=== PATIENT | female | born 1945 | race Caucasian/White ===

== ENCOUNTER 2016-11-27 23:00 | Emergency (ER) | payer MEDICARE, OTHER ==
[~2016-11-27] VITALS: Ht 157.5 cm; Wt 58.5 kg
[2016-11-27] MEDS ORDERED: LIDOCAINE 1%, 20ML ONE (23:37)
[2016-11-28] MEDS ORDERED: LIDOCAINE 1%-EPI 1:100K, 20ML SQ ONE
[2016-11-28] MEDS ORDERED: AMOXICILLIN/CLAV 875-125MG TABLET PO ONE (00:30)
[2016-11-28 00:33] VITALS: BP 133/79
== END 2016-11-28 00:39 ==
LOC: ED 23:58
DX: S61.452A Open bite of left hand, initial encounter (principal); Z87.891 Personal history of nicotine dependence; W54.0XXA Bitten by dog, initial encounter; Y93.89 Activity, other specified; Y92.009 Unspecified place in unspecified non-institutional (private) residence as the place of occurrence of the external cause; Y99.9 Unspecified external cause status
CPT/HCPCS: 99283

== ENCOUNTER → 2016-12-11 | Outpatient (CLI) | payer MEDICARE | END | disposition home or self-care (01) | LOC: CFH 08:51 | PROVIDERS: ATTEND Internal Medicine Cardiovascular Disease | DX: I08.3 Combined rheumatic disorders of mitral, aortic and tricuspid valves (principal); I37.1 Nonrheumatic pulmonary valve insufficiency; I51.7 Cardiomegaly | CPT/HCPCS: 93306 ==

== ENCOUNTER 2017-01-16 10:30 | Day surgery (SDC) | payer MEDICARE ==
[2017-01-15 15:56] VITALS: BP 148/83
[2017-01-15 16:29] LABS: BLOOD UREA NITROGEN 15 mg/dL (7-18)
[2017-01-15 16:59] LABS: LARGE PLATELETS 1+
[~2017-01-16] VITALS: Ht 157.5 cm; Wt 58.2 kg
[~2017-01-16 10:30] MED LIST: LEVO25TA4 PO
[2017-01-16] MEDS ORDERED: MIDAZOLAM 1 MG/ML, 5ML ONE (11:57)
[2017-01-16] MEDS ORDERED: VERAPAMIL 2.5 MG/ML, 2ML ONE (11:58)
[2017-01-16] MEDS ORDERED: BIVALIRUDIN 250 MG ONE (11:58)
[2017-01-16] MEDS ORDERED: NITROGLYCERIN 5 MG/ML, 10ML ONE (11:58)
[2017-01-16] MEDS ORDERED: LIDOCAINE 2%, 20ML ONE (11:58)
[2017-01-16] MEDS ORDERED: HEPARIN 1,000 UNITS/ML, 10ML ONE (11:58)
[2017-01-16] MEDS ORDERED: FENTANYL PF 100 MCG/2ML ONE (11:58)
== END 2017-01-16 16:45 | disposition home or self-care (01) ==
LOC: CACL 10:30
PROVIDERS: ATTEND Internal Medicine Cardiovascular Disease
DX: I25.10 Atherosclerotic heart disease of native coronary artery without angina pectoris (principal); I35.0 Nonrheumatic aortic (valve) stenosis
CPT/HCPCS: 36415; 71020; 80048; 85025; 85610; 85730; 93005; 93454; 99156; 99157; C1769; C1894; J1644; J2250; J3010; J3490; Q9967; J0583

== ENCOUNTER 2017-03-01 13:48 | Emergency (ER) | payer MEDICARE ==
[~2017-03-01] VITALS: Ht 157.5 cm; Wt 57.7 kg
[2017-03-01 15:44] LABS: BLOOD UREA NITROGEN 11 mg/dL (7-18)
[2017-03-01 15:57] LABS: HEMATOCRIT 42.3 % (34.6-47.8); HEMOGLOBIN 13.5 g/dL (11.7-16.4); WHITE BLOOD COUNT 8.7 x10^3/uL (3.4-10)
[2017-03-01 17:05] VITALS: BP 107/71
== END 2017-03-01 17:07 | disposition home or self-care (01) ==
LOC: ED 17:01
DX: L03.113 Cellulitis of right upper limb (principal); Z87.891 Personal history of nicotine dependence
CPT/HCPCS: 29125; 36415; 80048; 82040; 84550; 85025

== ENCOUNTER 2017-04-06 19:14 | Inpatient (IN) | payer MEDICARE ==
[~2017-04-06] VITALS: Ht 157.5 cm; Wt 59.3 kg
[2017-04-06] MEDS ORDERED: ASPIRIN 81 MG TABLET CHEW ONE (19:49)
[2017-04-06] MEDS ORDERED: ASPIRIN 81 MG TABLET CHEW PO ONE (20:00)
[2017-04-06] MEDS ORDERED: SODIUM CHLORIDE FLUSH 10ML SYR IVF ONE (20:00)
[2017-04-06 20:33] LABS: BLOOD UREA NITROGEN 14 mg/dL (7-18)
[2017-04-06 20:35] LABS: HEMATOCRIT 37.3 % (34.6-47.8); HEMOGLOBIN 12.1 g/dL (11.7-16.4); WHITE BLOOD COUNT 11.3 x10^3/uL (3.4-10)
[2017-04-06 20:41] LABS: IS PT STATUS REG ER OR PRE ER? YES
[2017-04-06] MEDS ORDERED: ATOR20TA9 PO (20:47)
[2017-04-06] MEDS ORDERED: METO25TA2 PO (20:47)
[2017-04-06] MEDS ORDERED: SODIUM CHLORIDE FLUSH 10ML SYR IVF PRN (22:30)
[2017-04-07] MEDS ORDERED: BISACODYL 10 MG SUPP PR PRN
[2017-04-07] MEDS ORDERED: PROMETHAZINE 25 MG/ML, 1ML IM PRN
[2017-04-07] MEDS ORDERED: morphine SULFATE 10 MG/ML, 1ML IVPush PRN
[2017-04-07] MEDS ORDERED: ACETAMINOPHEN 325 MG TABLET PO PRN
[2017-04-07] MEDS ORDERED: ONDANSETRON 2MG/ML, 2ML IVPush PRN
[2017-04-07] MEDS ORDERED: DOCUSATE 100 MG CAPSULE PO PRN
[2017-04-07] MEDS ORDERED: POLYETHYLENE GLYCOL 17 GM PACKET PO PRN
[2017-04-07] MEDS ORDERED: METOCLOPRAMIDE 5 MG/ML, 2ML IVPush PRN
[2017-04-07 00:36] LABS: IS PT STATUS REG ER OR PRE ER? YES
[2017-04-07 05:05] VITALS: BP 118/66
[2017-04-07 05:54] LABS: HEMATOCRIT 34.8 % (34.6-47.8); HEMOGLOBIN 11.3 g/dL (11.7-16.4); WHITE BLOOD COUNT 10.4 x10^3/uL (3.4-10)
[2017-04-07 06:06] LABS: ASPARTATE AMINO TRANSFERASE 18 U/L (15-37); BLOOD UREA NITROGEN 13 mg/dL (7-18)
[2017-04-07 06:17] LABS: IS PT STATUS REG ER OR PRE ER? NO
[2017-04-07] MEDS: METOPROLOL SUCCINATE 25 MG TAB.ER.24H PO SCH (08:51)
[2017-04-07] MEDS: LEVOTHYROXINE 25 MCG TABLET PO SCH (08:51)
[2017-04-07 08:55] VITALS: BP 114/66
[2017-04-07 13:17] VITALS: BP 154/64
[2017-04-07 20:00] VITALS: BP 145/76
[2017-04-07] MEDS: ATORVASTATIN 20 MG TABLET PO SCH (20:05)
[2017-04-08 01:14] VITALS: BP 144/75
[2017-04-08 07:50] VITALS: BP 126/72
[2017-04-08 10:27] VITALS: BP 130/73
[2017-04-08] MEDS: METOPROLOL SUCCINATE 25 MG TAB.ER.24H PO SCH (10:28)
[2017-04-08] MEDS: LEVOTHYROXINE 25 MCG TABLET PO SCH (10:28)
[2017-04-08] MEDS ORDERED: ENOXAPARIN 40 MG/0.4 ML SQ SCH (14:30)
[2017-04-08 16:02] VITALS: BP 149/78
[2017-04-08] MEDS ORDERED: POLYETHYLENE GLYCOL 17 GM PACKET PO PRN (19:30)
[2017-04-08] MEDS ORDERED: DOCUSATE 100 MG CAPSULE PO PRN (19:30)
[2017-04-08] MEDS ORDERED: BISACODYL 10 MG SUPP PR PRN (19:30)
[2017-04-08] MEDS ORDERED: ONDANSETRON 2MG/ML, 2ML IVPush PRN (19:30)
[2017-04-08] MEDS ORDERED: PROMETHAZINE 25 MG/ML, 1ML IM PRN (19:30)
[2017-04-08] MEDS: ATORVASTATIN 20 MG TABLET PO SCH (19:36)
[2017-04-08 19:43] VITALS: BP 146/80
[2017-04-09 01:38] VITALS: BP 137/78
[2017-04-09] MEDS: LEVOTHYROXINE 25 MCG TABLET PO SCH (05:23)
[2017-04-09 08:14] VITALS: BP_SYST 127; BP_SYST 129; BP_DIAS 73; BP_DIAS 78
[2017-04-09] MEDS ORDERED: SODIUM CHLORIDE FLUSH 10ML SYR IVF SCH (09:00)
[2017-04-09] MEDS ORDERED: INSULIN ASPART 100 UNITS/ML, PEN SQ-INSULIN SCH (09:00)
[2017-04-09] MEDS ORDERED: CHLORHEXIDINE MOUTHWASH 15 ML UDC MM PRN (09:00)
[2017-04-09] MEDS: METOPROLOL SUCCINATE 25 MG TAB.ER.24H PO SCH (09:00)
[2017-04-09] MEDS: MUPIROCIN OINT 2%, 22GM TP SCH ×2 (12:18→21:00)
[2017-04-09] MEDS ORDERED: FENTANYL PF 1000 MCG/20ML ONE (13:17)
[2017-04-09] MEDS ORDERED: MIDAZOLAM 10MG/2 ML ONE (13:17)
[2017-04-09 13:19] VITALS: BP_SYST 118; BP_SYST 130; BP_DIAS 76; BP_DIAS 78
[2017-04-09] MEDS ORDERED: REGULAR INSULIN 62.5 UNITS in SODIUM CHLORIDE 0.9% 249.375 ML IV PRN ×2 (14:00→18:16)
[2017-04-09] MEDS ORDERED: CEFUROXIME 1.5 GM in SODIUM CHLORIDE 0.9% 50 ML IVPB PRN (14:00)
[2017-04-09] MEDS ORDERED: PHENYLEPHRINE 10 MG in SODIUM CHLORIDE 0.9% 249 ML IV PRN ×2 (14:00→18:16)
[2017-04-09] MEDS ORDERED: EPINEPHRINE 2 MG in SODIUM CHLORIDE 0.9% 248 ML IV SCH (14:00)
[2017-04-09] MEDS ORDERED: ALBUMIN HUMAN 5% 500 ML IV ONE (14:00)
[2017-04-09] MEDS ORDERED: MANNITOL PMX 20% 500 ML IVPB PRN (14:00)
[2017-04-09] MEDS ORDERED: DEXMEDETOMIDINE 200 MCG in SODIUM CHLORIDE 0.9% 48 ML IV SCH (14:00)
[2017-04-09] MEDS ORDERED: VANCOMYCIN 1,000 MG in SODIUM CHLORIDE 0.9% 250 ML IVPB PRN (14:00)
[2017-04-09] MEDS ORDERED: POTASSIUM CHLORIDE 80 MEQ, SODIUM BICARBONATE 8.4% 10 MEQ, MAGNESIUM SULFATE 0.5 GM, LI... IV PRN (14:00)
[2017-04-09] MEDS ORDERED: PROPOFOL 10 MG/ML, 20ML ONE (15:38)
[2017-04-09] MEDS ORDERED: ROCURONIUM 10 MG/ML ONE (15:38)
[2017-04-09] MEDS ORDERED: DEXAMETHASONE 4 MG/ML, 1ML ONE (15:38)
[2017-04-09] MEDS ORDERED: PROTAMINE SULFATE 10 MG/ML, 25ML ONE ×2 (15:38→17:19)
[2017-04-09] MEDS ORDERED: CALCIUM CHLORIDE 10%, 10ML SYR ONE (17:19)
[2017-04-09] MEDS ORDERED: AMINOCAPROIC ACID 250 MG/ML, 20ML ONE (17:20)
[2017-04-09] MEDS ORDERED: DEXMEDETOMIDINE 200 MCG in SODIUM CHLORIDE 0.9% 48 ML IV PRN (18:16)
[2017-04-09] MEDS ORDERED: NITROGLYCERIN/D5W PMX 250 ML IV PRN (18:16)
[2017-04-09] MEDS ORDERED: DOBUTAMINE 250 MG in SODIUM CHLORIDE 0.9% 230 ML IV PRN (18:16)
[2017-04-09] MEDS ORDERED: SODIUM CHLORIDE 0.9% 1,000 ML IV PRN (18:16)
[2017-04-09] MEDS ORDERED: DEXTROSE 50%, 50ML SYRINGE IVPush PRN (18:30)
[2017-04-09] MEDS ORDERED: PROCHLORPERAZINE 5 MG/ML, 2ML IVPush PRN (18:30)
[2017-04-09] MEDS ORDERED: DEXTROSE 4 GM TAB.CHEW PO PRN (18:30)
[2017-04-09] MEDS ORDERED: morphine SULFATE 10 MG/ML, 1ML IVPush PRN (18:30)
[2017-04-09] MEDS ORDERED: ONDANSETRON 2MG/ML, 2ML IVPush PRN (18:30)
[2017-04-09] MEDS ORDERED: ACETAMINOPHEN 325 MG TABLET PO PRN (18:30)
[2017-04-09] MEDS ORDERED: EPINEPHRINE 2 MG in SODIUM CHLORIDE 0.9% 248 ML IV PRN (18:30)
[2017-04-09] MEDS ORDERED: MIDAZOLAM 1 MG/ML, 5ML IVPush PRN (18:30)
[2017-04-09] MEDS ORDERED: SODIUM BICARB 8.4%, 50ML SYRINGE IV PRN (18:30)
[2017-04-09] MEDS ORDERED: ACETAMINOPHEN 650 MG SUPP PR PRN (18:30)
[2017-04-09] MEDS: KSCALE TO 4.5 IV SCH (18:30)
[2017-04-09] MEDS ORDERED: MEPERIDINE/PF 25MG/0.5ML IVPush PRN (18:30)
[2017-04-09] MEDS ORDERED: GLUCAGON 1 MG IM PRN (18:30)
[2017-04-09] MEDS ORDERED: BISACODYL 5 MG EC TABLET PO PRN (18:30)
[2017-04-09] MEDS ORDERED: OXYcodone IR 5MG TABLET PO PRN (18:30)
[2017-04-09] MEDS ORDERED: BISACODYL 10 MG SUPP PR PRN (18:30)
[2017-04-09] MEDS ORDERED: LACTATED RINGERS 500 ML IV PRN (18:30)
[2017-04-09 18:52] LABS: HEMATOCRIT 32.5 % (34.6-47.8); HEMOGLOBIN 10.8 g/dL (11.7-16.4)
[2017-04-09 18:53] LABS: ABG COLLECTION SITE ARTERIAL LINE
[2017-04-09] MEDS: MAGNESIUM SULFATE 1 GM in SODIUM CHLORIDE 0.9% 50 ML IVPB SCH (19:41)
[2017-04-09] MEDS ORDERED: POTASSIUM CHLORIDE PMX 100 ML IV ONE (20:00)
[2017-04-09] MEDS: CEFUROXIME 1.5 GM in SODIUM CHLORIDE 0.9% 50 ML IVPB SCH (20:16)
[2017-04-09] MEDS: VANCOMYCIN 1,000 MG in SODIUM CHLORIDE 0.9% 250 ML IVPB SCH (20:19)
[2017-04-09] MEDS: DOCUSATE 100 MG CAPSULE PO SCH (21:00)
[2017-04-09] MEDS: ATORVASTATIN 20 MG TABLET PO SCH (21:00)
[2017-04-09] MEDS: MUPIROCIN OINT 2%, 22GM NAS SCH (21:12)
[2017-04-09] MEDS: SODIUM CHLORIDE FLUSH 10ML SYR IVF SCH (21:13)
[2017-04-10] MEDS: KSCALE TO 4.5 IV SCH ×5 (00:30→21:50)
[2017-04-10 00:50] LABS: HEMATOCRIT 37.1 % (34.6-47.8); HEMOGLOBIN 12.1 g/dL (11.7-16.4)
[2017-04-10] MEDS ORDERED: POTASSIUM CHLORIDE PMX 100 ML IV ONE ×3 (01:30→10:00)
[2017-04-10 04:00] VITALS: BP 124/71
[2017-04-10] MEDS ORDERED: ALBUTEROL/IPRATROPIUM 2.5MG/0.5MG, 3 ML NPPB PRN (06:00)
[2017-04-10] MEDS: VANCOMYCIN 1,000 MG in SODIUM CHLORIDE 0.9% 250 ML IVPB SCH (06:58)
[2017-04-10] MEDS: CEFUROXIME 1.5 GM in SODIUM CHLORIDE 0.9% 50 ML IVPB SCH (06:58)
[2017-04-10 07:03] LABS: ABG COLLECTION SITE NOT DOCUMENTED
[2017-04-10 07:04] LABS: HEMATOCRIT 38.6 % (34.6-47.8); HEMOGLOBIN 12.6 g/dL (11.7-16.4); WHITE BLOOD COUNT 24.9 x10^3/uL (3.4-10)
[2017-04-10 07:17] LABS: BLOOD UREA NITROGEN 14 mg/dL (7-18)
[2017-04-10] MEDS ORDERED: CEFUROXIME 1.5 GM in SODIUM CHLORIDE 0.9% 50 ML IVPB PRN (07:30)
[2017-04-10] MEDS ORDERED: VANCOMYCIN 1,000 MG in SODIUM CHLORIDE 0.9% 250 ML IVPB PRN (07:30)
[2017-04-10 07:33] LABS: DIFF TOTAL CELLS COUNTED 100 CELL DIFF
[2017-04-10] MEDS ORDERED: FUROSEMIDE 20 MG/2 ML IV ONE (08:30)
[2017-04-10 08:31] LABS: VERIFY COUNTS? YES
[2017-04-10] MEDS: MUPIROCIN OINT 2%, 22GM TP SCH ×2 (09:00→20:12)
[2017-04-10] MEDS: LEVOTHYROXINE 25 MCG TABLET PO SCH (09:11)
[2017-04-10] MEDS: DOCUSATE 100 MG CAPSULE PO SCH ×2 (09:18→20:12)
[2017-04-10] MEDS: SODIUM CHLORIDE FLUSH 10ML SYR IVF SCH ×2 (09:18→20:07)
[2017-04-10] MEDS: PANTOPRAZOLE 40 MG IV IVPush SCH (09:18)
[2017-04-10] MEDS: ASPIRIN 81 MG TABLET EC PO SCH (09:18)
[2017-04-10] MEDS: MUPIROCIN OINT 2%, 22GM NAS SCH ×2 (09:18→20:12)
[2017-04-10] MEDS: METOPROLOL TARTRATE 25 MG TABLET PO SCH ×2 (10:00→10:02)
[2017-04-10] MEDS: INSULIN ASPART 100 UNITS/ML, PEN SQ-INSULIN PRN ×5 (11:41→23:50)
[2017-04-10 14:34] LABS: HEMATOCRIT 37.6 % (34.6-47.8); HEMOGLOBIN 12.1 g/dL (11.7-16.4)
[2017-04-10] MEDS: CHLORHEXIDINE MOUTHWASH 15 ML UDC MM SCH (17:53)
[2017-04-10] MEDS ORDERED: WARFARIN 5 MG TABLET PO-COUM ONE (18:00)
[2017-04-10] MEDS: MAGNESIUM SULFATE 1 GM in SODIUM CHLORIDE 0.9% 50 ML IVPB SCH (18:22)
[2017-04-10] MEDS: ATORVASTATIN 20 MG TABLET PO SCH (20:12)
[2017-04-11] MEDS: INSULIN ASPART 100 UNITS/ML, PEN SQ-INSULIN PRN ×5 (03:57→21:18)
[2017-04-11 03:59] LABS: HEMOGLOBIN 11.9 g/dL (11.7-16.4); WHITE BLOOD COUNT 22.7 x10^3/uL (3.4-10)
[2017-04-11 04:00] VITALS: BP 114/66
[2017-04-11 04:12] LABS: BLOOD UREA NITROGEN 19 mg/dL (7-18)
[2017-04-11 04:20] LABS: DIFF TOTAL CELLS COUNTED 100 CELL DIFF
[2017-04-11 04:22] LABS: VERIFY COUNTS? YES
[2017-04-11 04:23] LABS: LARGE PLATELETS 1+
[2017-04-11 04:29] LABS: ABG COLLECTION SITE LEFT RADIAL; COLLATERAL CIRCULATION TESTING NORMAL
[2017-04-11] MEDS: CHLORHEXIDINE MOUTHWASH 15 ML UDC MM SCH ×2 (05:53→17:52)
[2017-04-11] MEDS: METOPROLOL TARTRATE 25 MG TABLET PO SCH (05:53)
[2017-04-11] MEDS: LEVOTHYROXINE 25 MCG TABLET PO SCH (06:16)
[2017-04-11] MEDS ORDERED: MAGNESIUM HYDROXIDE 8%, 30ML UDC PO PRN (08:00)
[2017-04-11] MEDS: PANTOPRAZOLE 40 MG IV IVPush SCH (08:26)
[2017-04-11] MEDS: MUPIROCIN OINT 2%, 22GM NAS SCH ×2 (08:26→21:19)
[2017-04-11] MEDS: MUPIROCIN OINT 2%, 22GM TP SCH ×2 (08:28→21:00)
[2017-04-11] MEDS: DOCUSATE 100 MG CAPSULE PO SCH ×2 (08:28→21:19)
[2017-04-11] MEDS: SODIUM CHLORIDE FLUSH 10ML SYR IVF SCH ×3 (08:28→21:19)
[2017-04-11] MEDS: ASPIRIN 81 MG TABLET EC PO SCH (08:28)
[2017-04-11] MEDS: FUROSEMIDE 20 MG/2 ML IV SCH (08:33)
[2017-04-11] MEDS: POTASSIUM CHLORIDE 10 MEQ TABLET.ER PO SCH (08:33)
[2017-04-11] MEDS ORDERED: AMIODARONE 900 MG in DEXTROSE 5% 482 ML IV PRN (09:30)
[2017-04-11] MEDS ORDERED: AMIODARONE 150 MG in DEXTROSE 5% 100 ML IV ONE (09:30)
[2017-04-11] MEDS ORDERED: FILTER 0.22 MICRON FOR AMIODARONE IV PRN (10:00)
[2017-04-11] MEDS: HYDROcodone/APAP 10/325 MG TABLET PO PRN ×2 (15:19)
[2017-04-11 15:34] VITALS: BP 131/69
[2017-04-11] MEDS ORDERED: WARFARIN 5 MG TABLET PO-COUM ONE (18:00)
[2017-04-11] MEDS: MAGNESIUM SULFATE 1 GM in SODIUM CHLORIDE 0.9% 50 ML IVPB SCH (18:34)
[2017-04-11 19:05] VITALS: BP 120/68
[2017-04-11] MEDS: ATORVASTATIN 20 MG TABLET PO SCH (21:19)
[2017-04-12 01:41] VITALS: BP 123/73
[2017-04-12 04:45] LABS: BLOOD UREA NITROGEN 20 mg/dL (7-18)
[2017-04-12 05:01] LABS: HEMATOCRIT 35.6 % (34.6-47.8); HEMOGLOBIN 11.4 g/dL (11.7-16.4); WHITE BLOOD COUNT 13.6 x10^3/uL (3.4-10)
[2017-04-12] MEDS ORDERED: HYDROcodone/APAP 5/325 TABLET ONE (06:33)
[2017-04-12] MEDS: HYDROcodone/APAP 10/325 MG TABLET PO PRN (06:35)
[2017-04-12] MEDS: LEVOTHYROXINE 25 MCG TABLET PO SCH (06:35)
[2017-04-12] MEDS: CHLORHEXIDINE MOUTHWASH 15 ML UDC MM SCH (06:35)
[2017-04-12 07:32] VITALS: BP 142/78
[2017-04-12] MEDS: PANTOPRAZOLE 40 MG IV IVPush SCH (08:28)
[2017-04-12] MEDS: POTASSIUM CHLORIDE 10 MEQ TABLET.ER PO SCH (08:28)
[2017-04-12] MEDS: FUROSEMIDE 20 MG/2 ML IV SCH (08:28)
[2017-04-12] MEDS: DOCUSATE 100 MG CAPSULE PO SCH ×2 (08:29→20:30)
[2017-04-12] MEDS: ASPIRIN 81 MG TABLET EC PO SCH (08:29)
[2017-04-12] MEDS: MUPIROCIN OINT 2%, 22GM TP SCH ×2 (08:30→22:03)
[2017-04-12] MEDS: MUPIROCIN OINT 2%, 22GM NAS SCH ×2 (08:30→20:30)
[2017-04-12] MEDS: SODIUM CHLORIDE FLUSH 10ML SYR IVF SCH ×4 (08:31→20:31)
[2017-04-12] MEDS ORDERED: METOPROLOL TARTRATE 25 MG TABLET PO SCH (10:00)
[2017-04-12] MEDS: INSULIN ASPART 100 UNITS/ML, PEN SQ-INSULIN PRN ×2 (12:06→20:38)
[2017-04-12 15:32] VITALS: BP 146/71
[2017-04-12] MEDS ORDERED: WARFARIN 5 MG TABLET PO-COUM SCH (18:00)
[2017-04-12 19:43] VITALS: BP 143/83
[2017-04-12] MEDS ORDERED: FILTER 0.22 MICRON FOR AMIODARONE IV PRN (20:00)
[2017-04-12] MEDS ORDERED: AMIODARONE 900 MG in DEXTROSE 5% 482 ML IV PRN (20:00)
[2017-04-12 20:30] VITALS: BP 137/81
[2017-04-12] MEDS: ATORVASTATIN 20 MG TABLET PO SCH (20:30)
[2017-04-12 22:06] VITALS: BP 145/81
[2017-04-12] MEDS: ACETAMINOPHEN 325 MG TABLET PO PRN (22:29)
[2017-04-13 03:09] VITALS: BP 149/79
[2017-04-13 05:08] LABS: HEMATOCRIT 36.8 % (34.6-47.8); HEMOGLOBIN 11.6 g/dL (11.7-16.4); WHITE BLOOD COUNT 12.7 x10^3/uL (3.4-10)
[2017-04-13 05:16] LABS: BLOOD UREA NITROGEN 17 mg/dL (7-18)
[2017-04-13] MEDS: LEVOTHYROXINE 25 MCG TABLET PO SCH (06:25)
[2017-04-13 06:41] VITALS: BP 160/82
[2017-04-13] MEDS: MUPIROCIN OINT 2%, 22GM TP SCH ×2 (08:27→21:00)
[2017-04-13] MEDS: PANTOPRAZOLE 40 MG IV IVPush SCH (08:35)
[2017-04-13] MEDS: FUROSEMIDE 20 MG/2 ML IV SCH (08:35)
[2017-04-13] MEDS: POTASSIUM CHLORIDE 10 MEQ TABLET.ER PO SCH (08:35)
[2017-04-13] MEDS: ASPIRIN 81 MG TABLET EC PO SCH (08:35)
[2017-04-13] MEDS: DOCUSATE 100 MG CAPSULE PO SCH ×2 (08:35→20:57)
[2017-04-13] MEDS: SODIUM CHLORIDE FLUSH 10ML SYR IVF SCH ×4 (08:36→21:00)
[2017-04-13] MEDS: MUPIROCIN OINT 2%, 22GM NAS SCH ×2 (09:00→20:58)
[2017-04-13] MEDS ORDERED: ENALAPRIL 2.5MG TABLET PO SCH (10:00)
[2017-04-13] MEDS: INSULIN ASPART 100 UNITS/ML, PEN SQ-INSULIN PRN ×2 (11:49→20:57)
[2017-04-13 13:50] VITALS: BP 136/66
[2017-04-13] MEDS ORDERED: WARFARIN 10 MG TABLET PO-COUM SCH (18:00)
[2017-04-13] MEDS: ACETAMINOPHEN 325 MG TABLET PO PRN (18:47)
[2017-04-13 19:22] VITALS: BP 150/79
[2017-04-13] MEDS ORDERED: AMIODARONE 900 MG in DEXTROSE 5% 482 ML IV PRN (20:00)
[2017-04-13] MEDS: ATORVASTATIN 20 MG TABLET PO SCH (20:57)
[2017-04-13] MEDS: AMIODARONE 200 MG TABLET PO SCH (20:58)
[2017-04-14 00:59] VITALS: BP 143/70
[2017-04-14] MEDS: LEVOTHYROXINE 25 MCG TABLET PO SCH (06:24)
[2017-04-14 06:26] LABS: BLOOD UREA NITROGEN 15 mg/dL (7-18)
[2017-04-14 07:52] VITALS: BP 155/89
[2017-04-14] MEDS ORDERED: POTASSIUM CHLORIDE 20 MEQ TAB.ER.PRT ONE (07:59)
[2017-04-14] MEDS: ASPIRIN 81 MG TABLET EC PO SCH (08:05)
[2017-04-14] MEDS: DOCUSATE 100 MG CAPSULE PO SCH ×2 (08:06→20:40)
[2017-04-14] MEDS: AMIODARONE 200 MG TABLET PO SCH ×2 (08:06→20:39)
[2017-04-14] MEDS: SODIUM CHLORIDE FLUSH 10ML SYR IVF SCH ×4 (08:07→20:40)
[2017-04-14] MEDS: MUPIROCIN OINT 2%, 22GM NAS SCH (08:07)
[2017-04-14] MEDS: PANTOPROZOLE 40MG TABLET PO SCH (08:09)
[2017-04-14] MEDS: POTASSIUM CHLORIDE 10 MEQ TABLET.ER PO SCH ×2 (08:09→20:39)
[2017-04-14] MEDS: ENALAPRIL 5MG TABLET PO SCH ×2 (08:09→20:39)
[2017-04-14] MEDS: MUPIROCIN OINT 2%, 22GM TP SCH ×2 (08:10→20:40)
[2017-04-14] MEDS ORDERED: ENALAPRIL 2.5MG TABLET PO SCH (09:00)
[2017-04-14] MEDS: FUROSEMIDE 20 MG/2 ML IV SCH ×2 (10:23→15:55)
[2017-04-14 12:08] VITALS: BP 136/72
[2017-04-14] MEDS ORDERED: AMIODARONE 900 MG in DEXTROSE 5% 482 ML IV PRN (14:30)
[2017-04-14] MEDS ORDERED: AMIODARONE 150 MG in DEXTROSE 5% 100 ML IV ONE (14:30)
[2017-04-14] MEDS: ACETAMINOPHEN 325 MG TABLET PO PRN (14:52)
[2017-04-14] MEDS ORDERED: FILTER 0.22 MICRON FOR AMIODARONE IV PRN (15:00)
[2017-04-14] MEDS ORDERED: WARFARIN 10 MG TABLET PO-COUM SCH (18:00)
[2017-04-14] MEDS ORDERED: ACETAMINOPHEN 325 MG TABLET PO PRN (19:30)
[2017-04-14 20:03] VITALS: BP 155/90
[2017-04-14] MEDS: ATORVASTATIN 20 MG TABLET PO SCH (20:40)
[2017-04-15 02:00] VITALS: BP 152/101
[2017-04-15] MEDS: LEVOTHYROXINE 25 MCG TABLET PO SCH (05:39)
[2017-04-15 05:55] LABS: HEMOGLOBIN 13.5 g/dL (11.7-16.4); WHITE BLOOD COUNT 15.6 x10^3/uL (3.4-10)
[2017-04-15 06:21] LABS: BLOOD UREA NITROGEN 19 mg/dL (7-18)
[2017-04-15 07:42] VITALS: BP_SYST 141; BP_SYST 157; BP_DIAS 79; BP_DIAS 95
[2017-04-15] MEDS: SODIUM CHLORIDE FLUSH 10ML SYR IVF SCH ×3 (09:00→21:41)
[2017-04-15] MEDS: AMIODARONE 200 MG TABLET PO SCH ×2 (09:06→21:37)
[2017-04-15] MEDS: DOCUSATE 100 MG CAPSULE PO SCH ×2 (09:06→21:38)
[2017-04-15] MEDS: ASPIRIN 81 MG TABLET EC PO SCH (09:06)
[2017-04-15] MEDS: POTASSIUM CHLORIDE 10 MEQ TABLET.ER PO SCH ×2 (09:06→21:37)
[2017-04-15] MEDS: PANTOPROZOLE 40MG TABLET PO SCH (09:06)
[2017-04-15] MEDS: MUPIROCIN OINT 2%, 22GM TP SCH ×2 (09:07→21:40)
[2017-04-15] MEDS: FUROSEMIDE 20 MG/2 ML IV SCH ×2 (09:10→21:40)
[2017-04-15] MEDS: METOPROLOL TARTRATE 25 MG TABLET PO SCH ×2 (09:43→18:33)
[2017-04-15] MEDS: ENALAPRIL 10 MG TABLET PO SCH ×2 (09:44→21:00)
[2017-04-15 15:28] VITALS: BP 133/71
[2017-04-15] MEDS ORDERED: WARFARIN 5 MG TABLET PO-COUM SCH (18:00)
[2017-04-15] MEDS ORDERED: OXYcodone IR 5MG TABLET PO PRN (19:30)
[2017-04-15] MEDS ORDERED: BISACODYL 5 MG EC TABLET PO PRN (19:30)
[2017-04-15] MEDS ORDERED: ONDANSETRON 2MG/ML, 2ML IVPush PRN (19:30)
[2017-04-15] MEDS ORDERED: BISACODYL 10 MG SUPP PR PRN ×2 (19:30)
[2017-04-15] MEDS ORDERED: ACETAMINOPHEN 325 MG TABLET PO PRN ×2 (19:30)
[2017-04-15] MEDS ORDERED: DEXTROSE 50%, 50ML SYRINGE IVPush PRN (19:30)
[2017-04-15] MEDS ORDERED: DOCUSATE 100 MG CAPSULE PO PRN (19:30)
[2017-04-15] MEDS ORDERED: PROCHLORPERAZINE 5 MG/ML, 2ML IVPush PRN (19:30)
[2017-04-15 20:00] VITALS: BP 149/81
[2017-04-15] MEDS: ATORVASTATIN 20 MG TABLET PO SCH (21:00)
[2017-04-15] MEDS ORDERED: SODIUM CHLORIDE FLUSH 10ML SYR IVF SCH (21:00)
[2017-04-16] MEDS: METOPROLOL TARTRATE 25 MG TABLET PO SCH ×2 (05:39→18:22)
[2017-04-16] MEDS: LEVOTHYROXINE 25 MCG TABLET PO SCH (05:39)
[2017-04-16 08:29] LABS: HEMATOCRIT 42.7 % (34.6-47.8); HEMOGLOBIN 13.8 g/dL (11.7-16.4); WHITE BLOOD COUNT 16.7 x10^3/uL (3.4-10)
[2017-04-16 08:40] LABS: ASPARTATE AMINO TRANSFERASE 36 U/L (15-37)
[2017-04-16 08:47] LABS: BLOOD UREA NITROGEN 14 mg/dL (7-18)
[2017-04-16 09:32] VITALS: BP 152/81
[2017-04-16] MEDS: PANTOPROZOLE 40MG TABLET PO SCH (09:41)
[2017-04-16] MEDS: DOCUSATE 100 MG CAPSULE PO SCH ×2 (09:42→20:44)
[2017-04-16] MEDS: FUROSEMIDE 20 MG/2 ML IV SCH ×2 (09:42→20:43)
[2017-04-16] MEDS: MUPIROCIN OINT 2%, 22GM TP SCH ×2 (09:43→20:44)
[2017-04-16] MEDS: ENALAPRIL 10 MG TABLET PO SCH ×2 (09:43→20:43)
[2017-04-16] MEDS: ASPIRIN 81 MG TABLET EC PO SCH (09:43)
[2017-04-16] MEDS: AMIODARONE 200 MG TABLET PO SCH ×2 (09:43→20:43)
[2017-04-16] MEDS: POTASSIUM CHLORIDE 10 MEQ TABLET.ER PO SCH ×2 (09:43→20:43)
[2017-04-16] MEDS: SODIUM CHLORIDE FLUSH 10ML SYR IVF SCH ×2 (09:44→20:42)
[2017-04-16 15:04] VITALS: BP 147/75
[2017-04-16] MEDS ORDERED: WARFARIN 2.5 MG TABLET PO-COUM ONE (18:00)
[2017-04-16 19:28] VITALS: BP 120/75
[2017-04-16] MEDS: ATORVASTATIN 20 MG TABLET PO SCH (20:43)
[2017-04-17 01:27] VITALS: BP 138/75
[2017-04-17 05:57] LABS: HEMATOCRIT 40.5 % (34.6-47.8); WHITE BLOOD COUNT 15.8 x10^3/uL (3.4-10)
[2017-04-17] MEDS: LEVOTHYROXINE 25 MCG TABLET PO SCH (06:05)
[2017-04-17] MEDS: METOPROLOL TARTRATE 25 MG TABLET PO SCH (06:06)
[2017-04-17 06:09] LABS: BLOOD UREA NITROGEN 20 mg/dL (7-18)
[2017-04-17 06:47] VITALS: BP 150/78
[2017-04-17] MEDS: DOCUSATE 100 MG CAPSULE PO SCH (08:14)
[2017-04-17] MEDS: PANTOPROZOLE 40MG TABLET PO SCH (08:14)
[2017-04-17] MEDS: MUPIROCIN OINT 2%, 22GM TP SCH (08:14)
[2017-04-17] MEDS: ASPIRIN 81 MG TABLET EC PO SCH (08:14)
[2017-04-17] MEDS: FUROSEMIDE 20 MG/2 ML IV SCH (08:15)
[2017-04-17] MEDS: ENALAPRIL 10 MG TABLET PO SCH (08:15)
[2017-04-17] MEDS: POTASSIUM CHLORIDE 10 MEQ TABLET.ER PO SCH (08:15)
[2017-04-17] MEDS: AMIODARONE 200 MG TABLET PO SCH (08:15)
[2017-04-17] MEDS: SODIUM CHLORIDE FLUSH 10ML SYR IVF SCH (08:15)
[2017-04-17] MEDS ORDERED: AMIO200T42 PO (10:28)
[2017-04-17] MEDS ORDERED: FURO10VI37 PO (10:28)
[2017-04-17] MEDS ORDERED: WARF3TAB PO-COUM (10:28)
[2017-04-17] MEDS ORDERED: ENAL10TA PO (10:28)
[2017-04-17] MEDS ORDERED: ASPI-621 PO (10:28)
[2017-04-17] MEDS ORDERED: POTA10TA5 PO (10:28)
[2017-04-17] MEDS ORDERED: PANT40TA5 PO (10:28)
[2017-04-17 12:32] VITALS: BP 138/78
[2017-04-17] MEDS ORDERED: OXYC5CAP2 PO (13:34)
[2017-04-17] MEDS ORDERED: WARFARIN 3 MG TABLET PO-COUM ONE (18:00)
== END 2017-04-17 13:55 | disposition home or self-care (01) | DRG 219 ==
LOC: ED 22:03 → EDIP 22:07 → CCU 04-07 02:46 → 5SO 04-07 21:00 → CSU 04-09 15:04 → 5SO 04-11 11:22 → DCLOUNGE 04-17 13:25
PROVIDERS: ADMIT Internal Medicine; ATTEND Internal Medicine
PROC: B246ZZ4 Ultrasonography of Right and Left Heart, Transesophageal (ICD-10-PCS; 2017-04-09)
PROC: 5A1221Z Performance of Cardiac Output, Continuous (ICD-10-PCS; 2017-04-09)
PROC: 5A1945Z Respiratory Ventilation, 24-96 Consecutive Hours (ICD-10-PCS; 2017-04-09)
PROC: 30233N1 Transfusion of Nonautologous Red Blood Cells into Peripheral Vein, Percutaneous Approach (ICD-10-PCS; 2017-04-09)
PROC: 0BH17EZ Insertion of Endotracheal Airway into Trachea, Via Natural or Artificial Opening (ICD-10-PCS; 2017-04-09)
PROC: 02RF0JZ Replacement of Aortic Valve with Synthetic Substitute, Open Approach (ICD-10-PCS; principal; 2017-04-09 14:00)
DX: I35.0 Nonrheumatic aortic (valve) stenosis (principal); E43 Unspecified severe protein-calorie malnutrition; J96.00 Acute respiratory failure, unspecified whether with hypoxia or hypercapnia; I46.9 Cardiac arrest, cause unspecified; D68.69 Other thrombophilia; I48.91 Unspecified atrial fibrillation; I80.9 Phlebitis and thrombophlebitis of unspecified site; J44.9 Chronic obstructive pulmonary disease, unspecified; J98.11 Atelectasis; I44.7 Left bundle-branch block, unspecified; D72.829 Elevated white blood cell count, unspecified; E03.9 Hypothyroidism, unspecified; E78.5 Hyperlipidemia, unspecified; I07.1 Rheumatic tricuspid insufficiency; I10 Essential (primary) hypertension; I70.0 Atherosclerosis of aorta; L08.9 Local infection of the skin and subcutaneous tissue, unspecified; Z51.5 Encounter for palliative care; Z79.82 Long term (current) use of aspirin; Z87.891 Personal history of nicotine dependence; Z68.23 Body mass index [BMI] 23.0-23.9, adult
CPT/HCPCS: 36415; 36600; 70450; 71010; 71020; 80048; 80053; 80061; 81003; 82040; 82330; 82800; 82803; 82810; 82947; 82962; 83735; 84132; 84295; 84443; 84484; 85014; 85018; 85025; 85049; 85347; 85610; 85730; 86850; 86900; 86923; 87081; 88305; 93005; 93312; 93321; 93325; 94002; 94003; 94150; 99285; C1768; J0697; J1100; J1650; J1815; J2250; J2405; J2704; J2720; J3010; J3370; J3475; J3480; J3490; P9045; C1751; C1760; C9113; J0171; J0282; J1940; J2270; J2370; J7050; J7060; P9016